=== PATIENT | male | born 1990 | race Caucasian/White ===

== ENCOUNTER 2016-04-21 13:29 | Emergency (ER) | payer OTHER ==
[~2016-04-21] VITALS: Ht 190.5 cm; Wt 146.5 kg
[2016-04-21 14:06] LABS: ABSOLUTE BASOPHIL COUNT 0.1 /CUMM (0.0-0.2); ABSOLUTE EOSINOPHIL COUNT 0.1 /CUMM (0.0-0.7); ABSOLUTE GRANULOCYTE CT 5.2 /CUMM (1.4-6.5); ABSOLUTE MONOCYTE COUNT 0.6 /CUMM (0.10-0.60); BASOPHIL % 0.7 % (0.0-2.0); EOSINOPHIL % 1.6 % (0-5); GRANULOCYTE % 65.8 % (42.2-75.2); HEMATOCRIT 45.6 % (42-52); MEAN CORPUSCULAR HGB 28.2 PG (27.0-31.0); MEAN CORPUSCULAR HGB CONC 34.1 G/DL (33.0-37.0); MEAN CORPUSCULAR VOLUME 82.8 FL (80.0-94.0); MEAN PLATELET VOLUME 9.3 FL (7.4-10.4); PLATELET COUNT 217 /CUMM (130-400); RBC DISTRIBUTION WIDTH 12.9 % (11.5-14.5); RED BLOOD CELL CT 5.51 /CUMM (4.70-6.10); WHITE BLOOD CELL COUNT 7.9 /CUMM (4.8-10.8)
[2016-04-21] MEDS ORDERED: OMEPRAZOLE40 M1 PO (15:32)
[2016-04-21] MEDS ORDERED: ALPRAZOLAM0.5 M4 PO (15:33)
[2016-04-21] MEDS ORDERED: FISH OIL500 M1 PO (15:34)
[2016-04-21] MEDS ORDERED: VITAMIN D2000 UNI1 PO (15:34)
--- NOTE | 2016-04-21 15:39 | ED CARDIAC/CP/PALPITATIONS ---
History of Present Illness General Chief Complaint: Chest Pain Stated Complaint: SENT BY MELODY FOR EVAL OF CHEST PAIN Source: patient, old records Exam Limitations: no limitations Vital Signs & Intake/Output Vital Signs & Intake/Output Vital Signs Date Time Temp Pulse Resp B/P Pulse O2 O2 Flow FiO2 Ox Delivery Rate 04/21 1709 98.5 92 18 128/70 99 Room Air Room Air 04/21 1708 92 128/70 04/21 1354 98.6 98 18 131/94 99 Room Air Allergies Coded Allergies: No Known Allergies (04/21/16) Reconcile Medications Alprazolam 0.5 MG TABLET 0.5 TAB PO PRN ANXIETY (Reported) Cholecalciferol (Vitamin D3) (Vitamin D) 2,000 UNIT TABLET 1 TAB PO DAILY SUPPLEMENT (Reported) Kent-3 Fatty Acids (Fish Oil) (Unknown Strength) CAPSULE (Unknown Dose) PO DAILY SUPPLEMENT (Reported) Omeprazole 40 MG CAPSULE. 1 CAP PO DAILY GI (Reported) Triage Note: 25 Y/O MALE C/O CHEST PAIN X 1 WEEK; STATES "I CANT PINPOINT WHERE ITS COMING FROM". STATES AT TIMES ON R SIDE, AT TIMES ON L SIDE. HAS BEEN SEEING DR OLIVER FOR SAME AND CAME TO ED TODAY DUE TO SEVERITY OF PAIN LAST NIGHT. ALSO C/O SOB AND FEELING LIGHTHEADED WITH STANDING. +BLURRY VISION PER PT. EKG AND BLOODWORK COMPLETED PRIOR TO EKG Triage Nurses Notes Reviewed? yes Onset: Abrupt Duration: week(s): (1), intermittent Timing: recent history Quality/Severity: mild, moderate, aching Location: substernal, central Radiation: no radiation Activities at Onset: none Prior Chest Pain/Card Workup: echocardiography, stress test Aspirin Today: no aspirin today Associated Symptoms: tingling in hands HPI: 25-year-old male with history of reflux presents emergency room for evaluation complaining of some sternal right upper and left upper chest pain for the past 1 week. He reports history of similar episodes in the past for which he's been seen by cardiology and had a negative stress test and echocardiogram performed at the time. The patient was seen by Dr. 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 He presents today after he developed these episodes while watching TV last night. He denies any symptoms at this time he reports intermittent dizziness with standing and tingling in his hands. No shortness of breath no abdominal pain nausea vomiting or diarrhea. He's been taking omeprazole after an urgent care told him that it was reflux. No cough no hemoptysis no recent immobility no leg swelling. there are no modifying factors No family history of sudden cardiac disease he does not smoke (PATTI POPE) Past History Travel History Traveled to [place] past 21 day No Medical History Any Pertinent Medical History? 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 No (PATTI POPE) Review of Systems Review of Systems Constitutional: Reports: see HPI. All Other Systems: Reviewed and Negative Comments Review of systems: See HPI, All other systems negative. Constitutional, no chills no fever, no malaise HEENT: No visual changes no sore throat no congestion Cardiovascular: chest pain , no palpitation Skin, no jaundice no rashes, no change in skin Respiratory: No dyspnea no cough no sputum GI: No nausea no vomiting, no diarrhea, no bloating/constipation : No dysuria Muscle skeletal: No joint pain, no back pain, no neck pain, Neurologic: No numbness no headache Psych: No stress Heme/endocrine: No bruising no bleeding Immunology: No lymphadenopathy (PATTI POPE) Physical Exam Physical Exam General Appearance: well developed/nourished, no apparent distress, alert Cardiovascular: regular rate/rhythm Comments: Well-developed well-nourished person in no acute distress HEENT: Normal EENT exam; PERRL, EOMI, HEAD is atraumatic. moist mucous membranes. Neck: Supple,normal range of motion Back: Nontender, no CVA tenderness. Full range of motion Cardiovascular: Regular rate and rhythms no murmurs rubs Respiratory: No respiratory distress. Patient speaking in full complete sentences. Breath sounds clear to auscultation bilaterally: NO W/R/R Abdomen: Soft, nontender nondistended, no appreciable organomegaly. Normal bowel sounds. No rebound/guarding, No ascites. Extremity: No edema, full range of motion of extremities Neuro: Alert oriented x3, motor sensory normal,There were no obvious focal neurologic abnormalities. Skin: No appreciable rash on exposed skin, skin is warm and dry. Psych: Mood and affect is normal, memory and judgment is normal. Core Measures ACS in differential dx? Yes Severe Sepsis Present: No Septic Shock Present: No (PATTI POPE) Progress Differential Diagnosis: AMI, aortic dissection, atrial fibrillation, cholecystitis, musculoskeletal pain, myocarditis, pancreatitis, pericarditis, pneumonia, pneumothorax, pulmonary embolism, PUD/GERD, unstable angina, anxiety Plan of Care: Orders Procedure Date/time Status MISTAKE 04/21 1702 Active TROPONIN LEVEL 04/21 1333 Complete CBC WITHOUT DIFFERENTIAL 04/21 1333 Complete EKG 04/21 1330 Active Laboratory Tests 04/21/16 1352: Troponin I < 0.01, CBC w Diff NO MAN DIFF REQ, RBC 5.51, MCV 82.8, MCH 28.2, RDW 12.9, MPV 9.3, Gran % 65.8, Lymphocytes % 24.6, Monocytes % 7.3, Eosinophils % 1.6, Basophils % 0.7, Absolute Granulocytes 5.2, Absolute Lymphocytes 2.0, Absolute Monocytes 0.6, Absolute Eosinophils 0.1, Absolute Basophils 0.1, PUBS MCHC 34.1 Old records reviewed patient denies any symptoms at this time CTA ordered continue to monitor Discussed with patient at length all of his lab results and CAT scan findings need for close follow-up with his streetcar conductor he is scheduled to see GI for the first time tomorrow. I discussed the patient the possibility of his symptoms being attributed to anxiety, stress, he states he's been on Xanax before does not like the medication patient clinically appears well he is ambulatory around the ER with steady gait he has not had any episodes here in the department I answered all his questions cleared for discharge (PATTI POPE) Diagnostic Imaging: Viewed by Me: Radiology Read, CT Scan. Discussed w/RAD: Radiology Read, CT Scan. Radiology Impression: PATIENT: DANA RAMIREZ PRESENT AGE: 25 PATIENT ACCOUNT NO: [id number] : 89 LOCATION: [facility] ORDERING PHYSICIAN: PATTI GUSMAN SERVICE DATE: 04/21/16 EXAM TYPE: CAT - CTA CHEST-PULMONARY EMBOLISM EXAMINATION: CT ANGIOGRAM OF THE CHEST WITH AND WITHOUT CONTRAST (CT PULMONARY ANGIOGRAM FOR PE) CLINICAL INFORMATION: Chest pain, dyspnea. COMPARISON: Chest x-ray 04/15/2016 TECHNIQUE: Prior to contrast administration, noncontrast localization images were obtained. Subsequently, multidetector volumetric imaging was performed from the thoracic inlet to below the diaphragms following the administration of 120 mL Optiray 350 intravenous contrast. No contrast reaction reported Sagittal, coronal, and MIP oblique sagittal reformatted images were obtained on the CT workstation, uploaded to PACS, and reviewed. Total exam dose-length product 1211.64 mGy-cm FINDINGS: QUALITY OF STUDY/CONTRAST BOLUS: Satisfactory. PULMONARY ARTERIES: No central or segmental pulmonary emboli. THORACIC AORTA: No aneurysm or dissection. LUNG: No focal consolidation, nodules or masses. PLEURA: No pleural effusion or pneumothorax. MEDIASTINUM: Normal heart size. No pericardial effusion. No hilar or mediastinal lymphadenopathy. No evidence of septal bowing or right heart strain. CHEST WALL/AXILLA: No axillary or internal mammary lymphadenopathy. OSSEOUS STRUCTURES: No acute or suspicious osseous abnormality. UPPER ABDOMEN: Unremarkable. No reflux of contrast into the hepatic veins to suggest elevated right heart pressures. IMPRESSION: Normal CT chest. VTE: negative DICTATED BY: HUGH SHARIF MD DATE/TIME DICTATED:04/21/161644 FIREWORKS ASSEMBLY SUPERVISOR:ANGELES DATE/TIME TRANSCRIBED:04/21/161644 CONFIDENTIAL, DO NOT COPY WITHOUT APPROPRIATE AUTHORIZATION. <Electronically signed in Other Vendor System> SIGNED BY: HUGH SHARIF MD 04/21/16 1701, PATIENT: DANA RAMIREZ PRESENT AGE: 25 PATIENT ACCOUNT NO: [id number] : 89 LOCATION: [facility] ORDERING PHYSICIAN: RIK OLIVER MD SERVICE DATE: 04/15/161533 EXAM TYPE: RAD - [facility]-CHEST XRAY, PA AND LATERAL EXAMINATION: XR CHEST CLINICAL INFORMATION: Chest pain COMPARISON: None TECHNIQUE: 2 views of the chest were obtained. FINDINGS: No significant abnormality is noted involving the heart, lungs, mediastinum, bony thorax or soft tissues. IMPRESSION: Unremarkable examination. DICTATED BY: KEELY HOLLIDAY MD DATE/TIME DICTATED: 04/15/161814 FIREWORKS ASSEMBLY SUPERVISOR:ANGELES DATE/TIME TRANSCRIBED:04/15/161814 CONFIDENTIAL, DO NOT COPY WITHOUT APPROPRIATE AUTHORIZATION. <Electronically signed in Other Vendor System> SIGNED BY: KEELY HOLLIDAY MD 04/15/16 1569 Initial ED EKG: normal intervals, normal p-waves, normal QRS complex, normal sinus rhythm (80) Rhythm Strip: normal sinus rhythm (PATTI POPE) Departure Departure Time of Disposition: 1715 Disposition: HOME OR SELF CARE Condition: Stable Clinical Impression Primary Impression: Atypical chest pain Referrals: DEDRA ABDUL APRN (PCP/Family) Additional Instructions: Follow-up with your commercial construction estimator as scheduled tomorrow as well as her primary care physician. [place] diet Tylenol or Motrin as needed. Return to emergency room at anytime sooner with any concerns Departure Forms: Customer Survey General Discharge Information (PATTI POPE) PA/MINIATURE MODEL MAKER Co-Sign Statement Statement: ED Attending supervision documentation- [] I saw and evaluated the patient. I have also reviewed all the pertinent lab results and diagnostic results. I agree with the findings and the plan of care as documented in the PA's/MINIATURE MODEL MAKER's documentation. [X I have reviewed the ED Record and agree with the PA's/MINIATURE MODEL MAKER's documentation. [] Additions or exceptions (if any) to the PAs/MINIATURE MODEL MAKER's note and plan are summarized below: [] (JELENA LIN DO) Critical Care Note Critical Care Note Critical Care Time: non-applicable (PATTI POPE)
--- NOTE | 2016-04-21 17:01 | CT SCAN REPORT ---
EXAMINATION: CT ANGIOGRAM OF THE CHEST WITH AND WITHOUT CONTRAST (CT PULMONARY ANGIOGRAM FOR PE) CLINICAL INFORMATION: Chest pain, dyspnea. COMPARISON: Chest x-ray 04/15/2016 TECHNIQUE: Prior to contrast administration, noncontrast localization images were obtained. Subsequently, multidetector volumetric imaging was performed from the thoracic inlet to below the diaphragms following the administration of 120 mL Optiray 350 intravenous contrast. No contrast reaction reported Sagittal, coronal, and MIP oblique sagittal reformatted images were obtained on the CT workstation, uploaded to PACS, and reviewed. Total exam dose-length product 1211.64 mGy-cm FINDINGS: QUALITY OF STUDY/CONTRAST BOLUS: Satisfactory. PULMONARY ARTERIES: No central or segmental pulmonary emboli. THORACIC AORTA: No aneurysm or dissection. LUNG: No focal consolidation, nodules or masses. PLEURA: No pleural effusion or pneumothorax. MEDIASTINUM: Normal heart size. No pericardial effusion. No hilar or mediastinal lymphadenopathy. No evidence of septal bowing or right heart strain. CHEST WALL/AXILLA: No axillary or internal mammary lymphadenopathy. OSSEOUS STRUCTURES: No acute or suspicious osseous abnormality. UPPER ABDOMEN: Unremarkable. No reflux of contrast into the hepatic veins to suggest elevated right heart pressures. IMPRESSION: Normal CT chest. VTE: negative
[2016-04-21 17:09] VITALS: BP 128/70
== END 2016-04-21 17:23 ==
LOC: ERH 13:29
PROVIDERS: Emergency Medicine
DX: R07.89 Other chest pain (principal)
CPT/HCPCS: 93005; 93010